=== PATIENT | female | born 1945 | race Caucasian/White ===

== ENCOUNTER 2017-12-23 18:47 | Inpatient (IN) | payer MEDICARE, OTHER ==
[2017-12-23 19:59] VITALS: BP 117/68
[2017-12-23] MEDS ORDERED: Magnesium Hydroxide (MOM) 30 mL UDC PO PRN (20:49)
[2017-12-24 07:32] LABS: CHOLESTEROL 162 mg/dL (<200); HDL -HIGH DENSITY LIPOPROTEIN 52 mg/dL (23-92); TRIGLYCERIDES 119 mg/dL (<150)
--- NOTE | 2017-12-24 08:31 | Psychiatric Evaluation ---
DATE OF SERVICE: 12/24/2017 JUSTIFICATION FOR HOSPITALIZATION: The patient is coming in to the hospital, believing her was poisoning her. The patient was walking in the middle of the street and coherent. CHIEF COMPLAINT: "Please send me home now." HISTORY OF PRESENT ILLNESS: A 72-year-old female, confused, disoriented, believes the year is 1979, knows the month of December, believes it is , has no idea why she is here. Apparently, she was believing her was trying to poison her. She was leaving her residence therefore walking in the middle of the street, walking in circles and coherent, noted to be confused, irritable, agitated and following me around the unit preoccupied, stating that she wants her calm and she wants to go home, very demanding, trying to leave the unit. The patient making statements that her was trying to kill her for some unclear reason. Difficult to interview because she is so fixated on leaving telling me to sign her out immediately. PAST PSYCHIATRIC HISTORY: Unclear, but there is some documentation about possibly bipolar versus depression. FAMILY HISTORY: Noncontributory. SOCIAL HISTORY: The patient states she was born in [place], . She states she has 2 children, 15 grandchildren and unclear drugs or alcohol or tobacco. MENTAL STATUS EXAMINATION: Stated age. Fair eye contact. Speech rambling loud. Mood "ready to go home." Affect flat. Thought processes were disoriented. No SI, no HI. No auditory or visual hallucinations, but the patient does appear to be psychotic and paranoid. Insight poor. Judgment diminished. PROVISIONAL DIAGNOSES: Psychosis, unspecified. Under medical, please see full H and P, also rule out dementia. ESTIMATED LENGTH OF STAY: 7-10 days. ASSESSMENT: The patient's psychotic left her house, rambling, walking in circles, paranoid, believing is trying to kill her. PLAN: We will initiate low-dose antipsychotic, increase collateral. TREATMENT PLAN: Includes group as well as milieu therapy. CONDITIONS FOR DISCHARGE: Improved mood, improved affect, better control of any psychotic symptoms. JOB# [id number]
--- NOTE | 2017-12-25 00:36 | History & Physical ---
ADMIT DATE: 12/23/2017 REASON FOR ADMISSION: Psychiatric disorder. HISTORY OF PRESENT ILLNESS: This is a 72-year-old female with underlying history of hypertension, hyperlipidemia, diabetes, some mental disorders, was admitted to Geropsych Unit for underlying psychiatric illness by Dr. Jamil. Dr. Jamil requested medical H and P on this patient. PAST MEDICAL HISTORY: Diabetes, hypertension, hyperlipidemia and mental disorders. PAST SURGICAL HISTORY: Noncontributory. SOCIAL HISTORY: Lives in a nursing facility. No alcohol, tobacco or street drug use. CURRENT MEDICATIONS: As per medication reconciliation. ALLERGIES: AMLODIPINE, BENAZEPRIL,and CODEINE. REVIEW OF SYSTEMS: No fever, no chills, no diarrhea, no vomiting, no abdominal pain, no chest pain, no short of breath, no headache. No other medical complaints. PHYSICAL EXAMINATION: VITAL SIGNS: Temperature 97.2, pulse 63, respirations 19 and blood pressure 136/81. HEENT: Unremarkable. HEART: S1 and S2 normal. LUNGS: Clear to auscultation. ABDOMEN: Soft. EXTREMITIES: No edema. ASSESSMENT: 1. Hypertension, stable. 2. Diabetes. 3. Hyperlipidemia. 4. Mental disorder. PLAN: The patient admitted to Geropsych unit. patient's underlying medical problems seems stable. Home medication reconciled, continue. Lab orders given. The patient is medically stable. Thank you Dr. Jamil for allowing me to participate in the care of this patient. [facility]# [id number] [facility]IT[facility]
[2017-12-25] MEDS: Fluticasone Propionate Nasal 1 SPR SPR NS SCH (08:53)
[2017-12-25] MEDS: Aspirin 81mg Chewable Tab PO SCH (08:54)
[2017-12-25] MEDS ORDERED: Non-Formulary Item 1 EA (Esomeprazole Magnesium [Nexium] 40 MG) PO SCH (09:00)
[2017-12-25] MEDS ORDERED: Haloperidol Lactate 5 mg/mL 1mL Vial ONE (10:13)
[2017-12-25] MEDS ORDERED: Haloperidol Lactate 5 mg/mL 1mL Vial IM ONE (10:20)
[2017-12-25 10:46] LABS: % BASOPHILS 1.3 % (0.0-2.0); % EOSINOPHILS 1.2 % (0.0-5.0); % LYMPHOCYTES 21.6 % (20.0-50.0); % MONOCYTES 5.6 % (2.0-10.0); % NEUTROPHILS 70.3 % (40.0-80.0); BASOPHILE ABSOLUTE 0.1 Th/cumm (0-0.2); EOSINOPHILE ABSOLUTE 0.1 Th/cmm (0.1-0.4); HEMATOCRIT 42.8 % (41.0-60); LYMPHOCYTE ABSOLUTE 1.9 Th/cmm (1.5-3.0); MEAN CELL VOLUME 89.2 fl (81-100); MEAN CORPUSCULAR HEMOGLOBIN 29.1 pg (27.0-31.0); MEAN CORPUSCULAR HGB CONC 32.6 pg (28.0-36.0); MEAN PLATELET VOLUME 6.8 fl; MONOCYTE ABSOLUTE 0.5 Th/cmm (0.3-1.0); NEUTROPHILE ABSOLUTE 6.1 Th/cmm (1.8-8.0); PLATELET COUNT 424 Th/cmm (150-400); RED CELL DISTRIBUTION WIDTH 12.7 % (11.5-20.0); WHITE BLOOD COUNT 8.7 Th/cmm (4.8-10.8)
[2017-12-25 10:47] LABS: ANION GAP 13.9 (7.0-16.0); BUN - UREA NITROGEN 14 mg/dL (7-25); CALCIUM SERUM 9.6 mg/dL (8.6-10.3); CARBON DIOXIDE 21.8 mEq/L (21.0-31.0); CHLORIDE 102 mEq/L (98-107); CREATININE - SERUM 0.6 mg/dL (0.6-1.2); GFR AFRICAN-AMERICAN > 60.0 ml/min (>90); GFR NON AFRICAN-AMERICAN > 60.0 ml/min; GLUCOSE 170 mg/dL (70-105); POTASSIUM SERUM 3.7 mEq/L (3.5-5.1); SODIUM SERUM 134 mEq/L (136-145)
[2017-12-26] MEDS: Fluticasone Propionate Nasal 1 SPR SPR NS SCH (09:45)
[2017-12-26] MEDS: Aspirin 81mg Chewable Tab PO SCH ×2 (09:45→10:00)
--- NOTE | 2017-12-26 18:29 | Progress Notes ---
DATE: 12/25/[address] Aggarwal covering for Dr. Jamil. This is a 72-year-old female who is presenting here, confused and disoriented, believing that it was 1977 and also month of December, but believed that it was and not understanding why she was here. Today on oabx-sa-dzdl evaluation, the patient was responding internally, aggressive, yelling, screaming and very difficult to redirect in conversation, had required emergent medications. MENTAL STATUS EXAMINATION: The patient is on lorazepam as needed, risperidone 0.5 mg p.o. b.i.d. ASSESSMENT AND PLAN: The patient, who presents irritable, agitated and aggressive requiring emergent medications. We will continue with primary psychiatrist's treatment plan. We will obtain more collateral and baseline information. [facility]# [id number]
--- NOTE | 2017-12-27 07:46 | Progress Notes ---
DATE: SUBJECTIVE: The patient was seen and evaluated. The patient's chart reviewed. Overnight, the patient required emergent medication because of aggressive behavior. Today on rafe-sx-taxg evaluation, the patient admits that she has been multiple hospitalizations and because of aggressive behavior, when attempting to discuss it in more detail what she means by aggressive behavior, she becomes more agitated, starts banging on the Светлана chair. MENTAL STATUS EXAMINATION: Psychotic, delusional, aggressive as evident by banging her hand on the Светлана chair. ASSESSMENT AND PLAN: The patient is a 72-year-old female, severely aggressive and agitated. We will continue with the current medication regimen. She will continue to be safe to target the patient's irritable and agitative state. [facility]# [id number]
[2017-12-27] MEDS: Aspirin 81mg Chewable Tab PO SCH (09:27)
[2017-12-27] MEDS: Fluticasone Propionate Nasal 1 SPR SPR NS SCH (09:29)
[2017-12-27] MEDS ORDERED: Haloperidol Lactate 5 mg/mL 1mL Vial IM ONE (10:41)
[2017-12-27] MEDS ORDERED: Benztropine 1 mg/mL 2 mL Vial IM ONE (10:41)
--- NOTE | 2017-12-27 21:03 | Progress Notes ---
DATE: 12/27/2017 SUBJECTIVE: The patient coming to the hospital, believing her was poisoning her. The patient was walking in the middle of the street, not coherent. On kivj-xv-roop, the patient is very intrusive, following me around, hitting the table, restless, requiring constant redirection, prompting, very demanding, constantly asking to go home. When I tell her she cannot go home, she continues asking, very ruminative. The patient requiring emergency orders of medications, irritable, calling the nursing staff all the time, appearing confused, does not know why she is here. At one point, believing that staff is trying to kill her as well. ASSESSMENT: The patient is intrusive, agitated, making nonsensical statements, believing was poisoning her. PLAN: The patient will be receiving Haldol cocktail x1 now. Apparently allergic to BENADRYL. Given her ongoing symptoms, she is not safe for discharge. JOB# [id number]
[2017-12-28] MEDS: Fluticasone Propionate Nasal 1 SPR SPR NS SCH (10:14)
[2017-12-28] MEDS: Aspirin 81mg Chewable Tab PO SCH (10:16)
--- NOTE | 2017-12-29 02:50 | Progress Notes ---
DATE: 12/28/2017 SUBJECTIVE: The patient disoriented, preoccupied, intrusive, apparently believed her was trying to poison her. Mostly fixated on leaving. She becomes restless, combative, aggressive towards staff, at times was trying to hit others or approach her. The patient has required emergency medications as well. She has been here very confused, has no recollection as to why she is here, taking Risperdal. Recent dose increase. ASSESSMENT: The patient remains symptomatic, agitated, trying to hit other people, very confused, delusional, thought her was trying to poison her. PLAN: We will continue to monitor, titrate and adjust medications. Given the patient's ongoing aggressive symptoms, she is not safe for discharge. JOB# [id number]
[2017-12-29] MEDS: Fluticasone Propionate Nasal 1 SPR SPR NS SCH (09:45)
[2017-12-29] MEDS: Aspirin 81mg Chewable Tab PO SCH (09:46)
--- NOTE | 2017-12-29 23:13 | Progress Notes ---
DATE: 12/29/2017 SUBJECTIVE: The patient is very intrusive, following me around, very repetitious, asking the same questions over and over and over again ad nauseam, very forgetful, needing a lot of prompting, constant redirection, wanting to leave the hospital, stating that she wants to go to [place] to be near her . Noncompliant at times, restless, pacing. She is taking medications. No overt side effects noted. EPS has been contacted because it seems that the patient's is not able to care for the patient given how confused she is, how aggressive she can become, sometimes yelling, irritable. Medications were noted. ASSESSMENT: The patient is confused, highly intrusive, a lot of behavioral disturbances, wandering back and forth in the unit asking the same questions over ad nauseam. PLAN: We will continue to monitor. We are also at this time trying to confirm the safe disposition plan at the same time that we are attempting to stabilize her. [facility]# [id number]
[2017-12-30] MEDS: Aspirin 81mg Chewable Tab PO SCH (09:05)
[2017-12-30] MEDS: Fluticasone Propionate Nasal 1 SPR SPR NS SCH (09:23)
--- NOTE | 2017-12-30 14:51 | Progress Notes ---
DATE: 12/30/2017 SUBJECTIVE: The patient is very confused, disoriented, aggressive, agitated, ripping off the nurse's clothes and banging on tables and aggressive, needs near constant redirection, very restless, unable to be cared for. Certainly at a lower level of care, is screaming, yelling. ASSESSMENT: The patient requiring a Светлана chair, very aggressive, agitated, combative at times. PLAN: We will continue to monitor. The patient will likely need titration of medications. We will increase Ativan dosing p.r.n. and will stop Risperdal and start low dose of Seroquel b.i.d. MEDICATIONS: Reviewed. JOB# [id number]
[2017-12-31] MEDS: Fluticasone Propionate Nasal 1 SPR SPR NS SCH (09:22)
[2017-12-31] MEDS: Aspirin 81mg Chewable Tab PO SCH (09:25)
--- NOTE | 2017-12-31 21:10 | Progress Notes ---
DATE: 12/31/2017 The patient ruminative, repetition, still asking to live, to be transferred, asks is everything okay multiple times during the time that I talked to her, poorly oriented, very confused, requiring high level of redirection, prompting, states she wants to go home with her . It is unclear if she is able to really care for her basic needs at home. Adult Protective Services is involved because of the who is elderly himself cannot really take care of the patient. The patient seems somewhat calmer versus yesterday. Cervical dosing seems to be calming the patient down. We will continue to monitor. The patient remains impulsive, unpredictable. We will also consider Namenda. JOB# [id number]
[2018-01-01] MEDS: Fluticasone Propionate Nasal 1 SPR SPR NS SCH (08:53)
[2018-01-01] MEDS: Aspirin 81mg Chewable Tab PO SCH (08:53)
--- NOTE | 2018-01-01 11:19 | Progress Notes ---
DATE: 01/01/2018 SUBJECTIVE: The patient slept for about 5 hours, agitated, very fixated on being transferred. There is no indication that a transfer is possible, but the patient believes otherwise she repeats this probably 100 times a day if not more. I explained to her what is going on and then a few minutes later, she repeats the same thing that she wants to be transferred. The patient agitated, throwing cups of water, punching a table, threatening to throw a binder at me to the point that the staff have to get involved and redirect her, wandering the units. The patient disoriented, needs constant reorientation. She knows where she is. She knows she is in the hospital. She has no idea why she is in the hospital. She does not know the year, the month. The patient focused on going home, but as of right now, she cannot go home and she does not remember why she is here, asking to speak to a viticulture teacher, but then forgetting that she never actually spoke to a viticulture teacher and talking about the court and the supreme court judge for some reason, trying to scratch staff. ASSESSMENT: The patient is combative, demanding, agitated, threatening to harm staff. Currently on Namenda. She may benefit from dosing of Aricept. PLAN: We will continue to monitor. Given her ongoing symptoms, she is not safe for discharge at this time. JOB# [id number]
--- NOTE | 2018-01-02 08:54 | Progress Notes ---
DATE: 01/02/2018 SUBJECTIVE: The patient is disorganized, agitated convinced the staff is putting poison in her water, noted to be paranoid, unpredictable, requiring constant redirection, prompting, at times going in a Светлана chair. The patient mumbling, claiming that people are trying to kidnap her, calling staff members, pros and cons. The patient did have some EPS from Seroquel. It seems it was stopped. ASSESSMENT: The patient is paranoid, disoriented, confused, psychotic appearing. We will stop Seroquel. The patient with very poor sleep, agitation and psychosis. We will initiate Zyprexa dosing. JOB# [id number]
[2018-01-02] MEDS: Aspirin 81mg Chewable Tab PO SCH (09:28)
[2018-01-02] MEDS: Fluticasone Propionate Nasal 1 SPR SPR NS SCH (10:18)
[2018-01-03] MEDS: Fluticasone Propionate Nasal 1 SPR SPR NS SCH (09:31)
[2018-01-03] MEDS: Aspirin 81mg Chewable Tab PO SCH (09:31)
--- NOTE | 2018-01-04 01:32 | Progress Notes ---
DATE: 01/03/2018 SUBJECTIVE: The patient in bed, restless, hyperverbal, requiring emergency dosing of Ativan. Noted to be symptomatic, very psychotic, believing that the Germans are trying to poison her, people are trying to kill her, the staff is trying to kill her and poison her, nonsensical, still asking to be transferred. I told her transfer is not possible. She is very ruminative, disorganized, easily agitated, hostile. ASSESSMENT: Ongoing safety concerns. The patient with ongoing psychotic symptoms. I will be increasing her dosing of Zyprexa today. JOB# [id number]
[2018-01-04] MEDS: Fluticasone Propionate Nasal 1 SPR SPR NS SCH (09:23)
[2018-01-04] MEDS: Aspirin 81mg Chewable Tab PO SCH (09:24)
--- NOTE | 2018-01-04 21:31 | Progress Notes ---
DATE: 01/04/2018 SUBJECTIVE: The patient remains intrusive, agitated, highly repetitive and ruminative, demanding to leave, but has nowhere to go. Does not seem to understand why she is here, still believes that the Germans are trying to hurt or harm her and poison her, believing that staff are trying to harm her. The patient is highly restless. at bedside, notes that he cannot take care of the patient and that she throws things at home and gets violent and aggressive. The patient is very forgetful, constantly asking the same questions over and over again. ASSESSMENT: The patient is confused, combative, highly restless. PLAN: We will continue to monitor. The patient remains disoriented, paranoid, cannot be cared for at a lesser level of care. I will titrate her Zyprexa dosing. No side effects noted on exam. Discussed with the patient. Discussed with . Discussed with staff. JOB# [id number]
[2018-01-05] MEDS: Aspirin 81mg Chewable Tab PO SCH (08:33)
[2018-01-05] MEDS: Fluticasone Propionate Nasal 1 SPR SPR NS SCH (08:34)
--- NOTE | 2018-01-05 21:10 | Progress Notes ---
DATE: 01/05/2018 SUBJECTIVE: The patient aggressive, confused, labile, intrusive, getting very close to me to the point that I have to ask her to back away and staff has to get involved, yelling at times, grabbing items, sometimes trying to strike out at staff. The patient is paranoid, believing that there is poison in the water, that staff is trying to kill her. "The Germans are trying to kill her." The patient is very unruly, following me around the unit, believing that the water is contaminated. The patient sometimes refusing medications. The patient wants to leave, wants to be transferred, but does not really know where transfer to right now given her ongoing behavior. ASSESSMENT: The patient is confused, forgetful, paranoid, at times medications noncompliant, other times she does take medications. PLAN: We will continue to monitor, ongoing concerns about compliance. I may need to follow a Juan petition. JOB# [id number]
[2018-01-06] MEDS: Fluticasone Propionate Nasal 1 SPR SPR NS SCH (09:38)
[2018-01-06] MEDS: Aspirin 81mg Chewable Tab PO SCH (09:38)
--- NOTE | 2018-01-06 13:25 | Progress Notes ---
DATE: 01/06/2018 Case was discussed with staff of the patient, reviewed records. This is covering for Dr. Jamil. A 72-year-old female who was admitted to ____, she was disoriented, confused, agitated. The patient has no idea why she was admitted, she was living residence, walking in the middle of the street in circles, confused, irritable, agitated with a possible history of bipolar disorder. The patient continues to be unpredictable and impulsive. Actually, she ____, she appeared to be very aggressive, irritable, demanding. She has been compliant with the medication with no side effects, no sedation, no nausea. She is on Aricept 5 mg at bedtime, Namenda 5 mg daily and Zyprexa 10 mg at bedtime to 12.5 mg daily with no side effects, no sedation, no nausea, no extrapyramidal symptoms. I will be increasing Namenda to 5 mg twice a day and I will continue the patient in group therapy, milieu therapy, and adjust medications as needed. JOB# [id number]
[2018-01-07] MEDS: Fluticasone Propionate Nasal 1 SPR SPR NS SCH (09:51)
[2018-01-07] MEDS: Aspirin 81mg Chewable Tab PO SCH (09:52)
--- NOTE | 2018-01-07 21:38 | Progress Notes ---
DATE: 01/07/2018 SUBJECTIVE: Case was discussed with staff of the patient. The patient continues to be unpredictable, impulsive, easily agitated, continues to have poor insight. Continues to be confused, unable to make safe plan for self-care. She is compliant with the medication with no side effects, no sedation, no nausea, no extrapyramidal symptoms and we will continue to work with the patient in group therapy, milieu therapy, adjust medication as needed. JOB# [id number]
[2018-01-08] MEDS: Aspirin 81mg Chewable Tab PO SCH (08:49)
--- NOTE | 2018-01-08 08:49 | Progress Notes ---
DATE: Dr. Velasquez covering for Dr. Jamil. SUBJECTIVE: Chart reviewed and the patient interviewed. Also discussed the patient's condition with the staff and reviewed records and labs. The patient is still agitated and is still restless. The patient also is fighting with the staff. She also tries to hit others. The patient also is selective with taking her medications and sometimes to take medications, sometimes she does not. She also paranoid and thinks that the staff are trying to poison her. Otherwise, no side effects of medications. ASSESSMENT: The patient is still agitated and is still psychotic. TREATMENT PLAN: We will increase Zyprexa to 5 mg in the morning and 10 mg at bedtime. Also, continue adjusting psychotropic medications and continue to work on behavioral modifications. JOB# [id number]
[2018-01-08] MEDS: Fluticasone Propionate Nasal 1 SPR SPR NS SCH (08:56)
--- NOTE | 2018-01-08 21:48 | General Progress Note ---
Subjective - Review of Systems Service Date: 01/08/18 Subjective: Patient doing ok Per nursing staff patient has been refusing her meds Objective - Results Result Diagrams: 12/25/17 10:27 12/25/17 10:27 Recent Labs: Laboratory Last Values WBC 8.7 Th/cmm (4.8-10.8) 12/25/17 10:27 RBC 4.80 Mil/cmm (3.80-5.20) 12/25/17 10:27 Hgb 14.0 gm/dL (12-16) 12/25/17 10:27 Hct 42.8 % (41.0-60) 12/25/17 10:27 MCV 89.2 fl (81-100) 12/25/17 10:27 MCH 29.1 pg (27.0-31.0) 12/25/17 10: MCHC Differential 32.6 pg (28.0-36.0) 12/25/17 10: RDW 12.7 % (11.5-20.0) 12/25/17 10:27 Plt Count 424 Th/cmm (150-400) H 12/25/17 10:27 MPV 6.8 fl 12/25/17 10:27 Neutrophils % 70.3 % (40.0-80.0) 12/25/17 10:27 Lymphocytes % 21.6 % (20.0-50.0) 12/25/17 10: Monocytes % 5.6 % (2.0-10.0) 12/25/17 10: Eosinophils % 1.2 % (0.0-5.0) 12/25/17 10: Basophils % 1.3 % (0.0-2.0) 12/25/17 10:27 Sodium 134 mEq/L (136-145) L 12/25/17 10:27 Potassium 3.7 mEq/L (3.5-5.1) 12/25/17 10:27 Chloride 102 mEq/L (98-107) 12/25/17 10:27 Carbon Dioxide 21.8 mEq/L (21.0-31.0) 12/25/17 10:27 Anion Gap 13.9 (7.0-16.0) 12/25/17 10:27 BUN 14 mg/dL (7-25) 12/25/17 10:27 Creatinine 0.6 mg/dL (0.6-1.2) 12/25/17 10:27 Est GFR ( Amer) > 60.0 ml/min (>90) 12/25/17 10:27 Est GFR (Non-Af Amer) > 60.0 ml/min 12/25/17 10:27 BUN/Creatinine Ratio 23.3 12/25/17 10:27 Glucose 170 mg/dL (70-105) H 12/25/17 10:27 POC Glucose 122 MG/DL (70 - 105) H 12/24/17 22:15 Calcium 9.6 mg/dL (8.6-10.3) 12/25/17 10:27 Triglycerides 119 mg/dL (<150) 12/24/17 07:00 Cholesterol 162 mg/dL (<200) 12/24/17 07:00 LDL Cholesterol Direct 95 mg/dL (75-193) 12/24/17 07:00 HDL Cholesterol 52 mg/dL (23-92) 12/24/17 07:00 - Physical Exam Vitals and I&O: Vital Signs Temp 97.8 F 01/08/18 20:11 Pulse 100 01/08/18 21:01 Resp 18 01/08/18 20:11 BP 101/65 01/08/18 21:01 Pulse Ox 97 01/08/18 20:11 Intake & Output 01/08/18 01/08/18 01/09/18 06:59 18:59 06:59 Intake Total 240 1000 240 Balance 240 1000 240 Intake: Oral 240 1000 240 Other: # Voids 2 3 2 # Bowel Movements 1 Active Medications: Current Medications Acetaminophen (Tylenol) 650 mg PO Q4HR PRN PRN Reason: Mild Pain / Temp above 100 Stop: 02/21/18 20:48 Last Admin: 12/24/17 22:54 Dose: 650 mg Aspirin (Aspirin Chewable) 81 mg PO DAILY PADMINI Stop: 02/23/18 08:59 Last Admin: 01/08/18 08:49 Dose: Not Given Donepezil HCl (Aricept) 5 mg PO HS PADMINI Stop: 03/02/18 20:59 Last Admin: 01/08/18 21:01 Dose: 5 mg Fluticasone Propionate (Flonase) 1 spr NS DAILY PADMINI Stop: 02/23/18 08:59 Last Admin: 01/08/18 08:56 Dose: Not Given Hydralazine HCl (Apresoline) 10 mg PO TID PADMINI Stop: 02/22/18 21:59 Last Admin: 01/08/18 21:01 Dose: Not Given Lorazepam (Ativan) 1 mg PO Q6HR PRN; Protocol PRN Reason: Anxiety Stop: 01/22/18 20:48 Last Admin: 01/06/18 14:02 Dose: 1 mg Magnesium Hydroxide (Milk Of Magnesia) 30 ml PO HS PRN PRN Reason: Constipation Memantine (Namenda) 5 mg PO BID PADMINI Stop: 03/07/18 16:59 Last Admin: 01/08/18 18:25 Dose: Not Given Metformin HCl (Glucophage) 500 mg PO AC PADMINI Stop: 02/23/18 07:29 Last Admin: 01/08/18 18:25 Dose: Not Given Olanzapine (Zyprexa) 10 mg PO HS PADMINI; Protocol Stop: 03/05/18 20:59 Last Admin: 01/08/18 21:02 Dose: 10 mg Olanzapine (Zyprexa) 5 mg PO DAILY PADMINI; Protocol Stop: 03/09/18 08:59 Last Admin: 01/08/18 08:49 Dose: 5 mg Valsartan (Diovan) 160 mg PO BID PADMINI Stop: 02/23/18 08:59 Last Admin: 01/08/18 18:25 Dose: Not Given General: Other (confused) Cardiovascular: Regular rate Lungs: Clear to auscultation Assessment/Plan - Assessment Assessment: DM II HTN NON COMPLIANCE MENTAL HEALTH DISORDER - Plan Plan: Medication compliance advised Continue current medical management Psych eval and management per psychiatrist Nutritional Asmnt/Malnutr-PDOC - Dietary Evaluation Malnutrition Findings (Please click <Entered> for more info): Nutritional Asmnt/Malnutrition Start: 12/27/17 15: 49 Text: Status: Complete Freq: Protocol: Document 12/27/17 15:49 [id number] (Rec: 12/27/17 16:08 [id number]) Nutritional Asmnt/Malnutrition Patient General Information Nutritional Screening Moderate Risk Diagnosis psychosis Pertinent Medical Hx/Surgical Hx DM, HTN, hyperlipidemia, mental disorders Subjective Information Per EMR, PO intake 50-100%, avg 75%. Current Diet Order/ Nutrition Support [facility] soft chopped, DM Pertinent Medications glucophage Pertinent Labs 12/25 Na 134, glucose Ca 9.6 Nutritional Hx/Data Height 1.65 m Height (Calculated Centimeters) 165.1 Current Weight (lbs) 80.286 kg Weight (Calculated Kilograms) 80.3 Weight (Calculated Grams) 96894.8 [place] Body Weight 125 Body Mass Index (BMI) 29.4 GI Symptoms Last BM 12/25 x 2 Skin Integrity/Comment: intact Current %PO Good (75-100%) Estimated Nutritional Goals BEE in Kcals: Using Current wt Calories/Kcals/Kg 23-27 Kcals Calculated 0757-7309 Protein: Using Current wt Protein g/k.8 Protein Calculated 64 Fluid: ml 1840-2160ml (1ml/kcal) Nutritional Problem No current Nutrition Prob Problem N/A Malnutrition Alert Is there a minimum of two criteria No selected? Query Text:Check all the applicable criteria. A minimum of two criteria are recommended for diagnosis of either severe or non-severe malnutrition. Malnutrition Related to Morbid Obesity Malnutrition related to morbid obesity No Intervention/Recommendation Comments 1. Continue with [facility] soft chopped diabetic diet as ordered. 2. Monitor PO intake, wt, labs and skin integrity 3. F/U as low risk in 7 days, 01/03 Expected Outcomes/Goals Expected Outcomes/Goals 1. PO intake to meet at least 75% of nutritional needs. 2. Wt stability, skin to remain intact, labs to approach WNL.
[2018-01-09] MEDS: Aspirin 81mg Chewable Tab PO SCH (09:14)
[2018-01-09] MEDS: Fluticasone Propionate Nasal 1 SPR SPR NS SCH (13:35)
--- NOTE | 2018-01-10 01:22 | Progress Notes ---
DATE: 01/09/2018 Chart reviewed and the patient interviewed. Also, discussed the patient's condition with the staff and reviewed records and labs. The patient is very agitated and she is restless. The patient also was fighting and tries to hit others. The patient also told me that the staff are trying to poison her and that she is refusing to take medications, thinking that the medicine is a poison. At the same time when I was trying to interview the patient, the patient was trying to push me to enter is into another unit and she was very agitated and aggressive and it was difficult for me to calm her down. The patient also is still in irritable and angry mood and also her thoughts are disorganized and was not able to give me any safe plan for self-care. ASSESSMENT: The patient is restless, still agitated and is still paranoid and considered to be gravely disabled. TREATMENT PLAN: Continue monitoring her behavior and her condition closely. Also continue adjusting psychotropic medications. Also, we will place the patient on 30 days certificate based on grave disability. JOB# [id number]
[2018-01-10] MEDS: Fluticasone Propionate Nasal 1 SPR SPR NS SCH (11:51)
[2018-01-10] MEDS: Aspirin 81mg Chewable Tab PO SCH (11:51)
[2018-01-11] MEDS ORDERED: Haloperidol Lactate 5 mg/mL 1mL Vial IM ONE (07:52)
[2018-01-11] MEDS ORDERED: Haloperidol Lactate 5 mg/mL 1mL Vial ONE (07:54)
[2018-01-11] MEDS: Aspirin 81mg Chewable Tab PO SCH (15:33)
[2018-01-11] MEDS: Fluticasone Propionate Nasal 1 SPR SPR NS SCH (15:33)
--- NOTE | 2018-01-11 17:26 | Progress Notes ---
DATE: 01/10/2018 SUBJECTIVE: The patient was seen, very aggressive, trying to grab me to the point that I have to walk away and exit the units. The patient still believes that staff was trying to poison her, alluding to having ____, osteoporosis. The patient is stating that she wants to be transferred. The patient remains aggressive, combative, trying to hit other people, very unruly, refusing to take her medications. Reason is unclear, other than her telling me that she does not feel that she needs. The patient is sleeping well, eating well, very impulsive, restless, unpredictable. ASSESSMENT: The patient is unruly, combative, violent, aggressive, even aggressive with this clinician. PLAN: We will initiate Juan petition. The patient is currently on a 30-day hold. JOB# [id number]
--- NOTE | 2018-01-11 19:48 | Progress Notes ---
DATE: 01/11/2018 The patient is combative, trying to throw things, agitated, convinced nursing staff trying to hurt her, paranoid, requiring emergency medications this morning, refusing medications stating in fact she is not refusing medications, worried about the side effects of medications, but she is not taking them to have side effects. The patient agitated, combative, violent, aggressive, trying to grab staff. PLAN: We are awaiting the court for the Riese hearing. The patient remains violent, aggressive, paranoid. JOB# [id number]
[2018-01-12] MEDS: Fluticasone Propionate Nasal 1 SPR SPR NS SCH (10:54)
[2018-01-12] MEDS: Aspirin 81mg Chewable Tab PO SCH (10:54)
[2018-01-12] MEDS ORDERED: Benztropine 1 mg/mL 2 mL Vial IM PRN (16:45)
--- NOTE | 2018-01-12 19:10 | Progress Notes ---
DATE: 01/12/2018 The patient remains confused, disoriented, Riese petition was upheld. The patient touching the heads of other patients, getting up from the seat and sitting down, banging on the table, refusing ordered medications. Riese was upheld. We will start Haldol IM backup. The patient is unruly, aggressive, violent, grabbing people, paranoid, believing that her food is being poisoned, hyperverbal, loud, demanding at times. ASSESSMENT: The patient unruly, hyperverbal, aggressive. PLAN: We will continue to monitor. I will be stopping her Zyprexa and will be initiating Haldol. She is taking Haldol IM and it seems to be effective. We will plan to give Haldol Decanoate over the next few days, based on tolerability and efficacy given the patient's poor medication compliance. [facility]# [id number]
[2018-01-13] MEDS: Aspirin 81mg Chewable Tab PO SCH (09:04)
[2018-01-13] MEDS: Fluticasone Propionate Nasal 1 SPR SPR NS SCH (09:28)
--- NOTE | 2018-01-14 01:46 | Progress Notes ---
DATE: Dr. Velasquez covering for Dr. Jamil. SUBJECTIVE: Chart reviewed and the patient interviewed. Also discussed the patient's condition with the staff and reviewed records and labs. The patient is still confused and still seems to be disoriented. The patient also is still in irritable mood and she is reluctant to take medications, but at the same time, the patient is ____ and she has been taking her medications. The patient also is still in irritable and aggressive. Otherwise, the patient continued to comply with taking Haldol IM since other medications stopped and plenty of Haldol Decanoate. ASSESSMENT: The patient is still aggressive, but not as psychotic as before. TREATMENT PLAN: Continue to monitor her behavior and her condition closely. Also, continue adjusting psychotropic medications and work on behavior modification as well as her compliance with taking medications. JOB# [id number]
--- NOTE | 2018-01-14 07:10 | Progress Notes ---
DATE: SUBJECTIVE: Chart reviewed and the patient interviewed. Also discussed the patient's condition with the staff and reviewed records and labs. The patient continued to be combative and continued to be aggressive with the staff, especially during helping her with her ADLs. The patient also has difficulty sitting still and yelling and screaming and wandering into other patient's rooms. The patient also has difficulty sleeping at night. She also continued to be delusional and paranoid and thinks that staff are trying to poison her. She also needs lots of redirections. Otherwise, the patient is compliant with taking her medications with no side effects of medications. ASSESSMENT: The patient is still agitated and in irritable mood. TREATMENT PLAN: Continue to monitor her behavior and her condition closely. Also, we will increase Haldol to 5 mg twice a day and will continue to follow up. [facility]# [id number]
[2018-01-14] MEDS: Aspirin 81mg Chewable Tab PO SCH ×2 (09:56→10:42)
[2018-01-14] MEDS: Fluticasone Propionate Nasal 1 SPR SPR NS SCH (09:57)
[2018-01-14] MEDS: Haloperidol Lactate 5 mg/mL 1mL Vial IM PRN (10:44)
[2018-01-15] MEDS: Aspirin 81mg Chewable Tab PO SCH (09:00)
[2018-01-15] MEDS: Fluticasone Propionate Nasal 1 SPR SPR NS SCH (09:03)
[2018-01-16] MEDS: Haloperidol Lactate 5 mg/mL 1mL Vial IM PRN (09:31)
[2018-01-16] MEDS: Fluticasone Propionate Nasal 1 SPR SPR NS SCH (12:25)
[2018-01-16] MEDS: Aspirin 81mg Chewable Tab PO SCH (12:25)
--- NOTE | 2018-01-16 18:39 | Progress Notes ---
DATE: 01/16/2018 SUBJECTIVE: Chart reviewed and the patient interviewed. Also, discussed the patient's condition with the staff and reviewed records and labs. The patient is still forgetful and confused. The patient also is still suspicious and demanding. The patient also needs lots of directions and has difficulty redirecting her. The patient also is still in angry and irritable mood. Otherwise, the patient denies any side effects of medications. ASSESSMENT: The patient is still psychotic. TREATMENT PLAN: Continue adjusting psychotropic medications and monitor her behavior and continue to follow up. JOB# [id number]
[2018-01-17] MEDS: Aspirin 81mg Chewable Tab PO SCH (09:43)
[2018-01-17] MEDS: Fluticasone Propionate Nasal 1 SPR SPR NS SCH (09:44)
--- NOTE | 2018-01-18 05:37 | Progress Notes ---
DATE: SUBJECTIVE: The patient seen, chart reviewed, discussed with staff. The patient is calmer, likely approaching her baseline, taking her medications, sometimes requiring intramuscular medications of Haldol, but this has been more few and far between. The patient a lot less paranoid, no longer talking about being poisoned. The patient still attention seeking, accusation all times, impulsive, irritable, some rambling, but she is a lot less aggressive. ASSESSMENT: The patient seems to be calmer, more cooperative, psychotic symptoms dissipating. PLAN: We will order Haldol Decanoate. The patient does have confirmation of placement. JOB# [id number]
[2018-01-18] MEDS: Aspirin 81mg Chewable Tab PO SCH (09:40)
[2018-01-18] MEDS: Fluticasone Propionate Nasal 1 SPR SPR NS SCH (09:40)
[2018-01-18] MEDS: Haloperidol Lactate 5 mg/mL 1mL Vial IM PRN (09:40)
--- NOTE | 2018-01-18 18:50 | Progress Notes ---
DATE: 01/18/2018 The patient likely at her baseline, calmer, no longer delusional, less paranoid, no combative behavior, significantly calmer, no need for emergency medications, better medication compliance, good tolerance. No EPS. No overt side effects. Sleeping fairly well. No longer aggressive. ASSESSMENT: The patient likely at her baseline, confused, disoriented, but no longer paranoid, no suicidal gestures. No SI. No HI. PLAN: We will discharge today. [facility]# [id number]
== END 2018-01-18 18:30 | DRG 885 ==
LOC: GERO2 18:47
PROVIDERS: ADMIT Psychiatry & Neurology Psychiatry; ATTEND Psychiatry & Neurology Psychiatry
DX: F29 Unspecified psychosis not due to a substance or known physiological condition (principal); I10 Essential (primary) hypertension; E78.5 Hyperlipidemia, unspecified; E11.9 Type 2 diabetes mellitus without complications; Z88.1 Allergy status to other antibiotic agents; Z88.5 Allergy status to narcotic agent; Z88.8 Allergy status to other drugs, medicaments and biological substances; Z91.19 Patient's noncompliance with other medical treatment and regimen
CPT/HCPCS: 36415-UA; 80048-TC; 80061-TC; 82948-90; 83036-90; 85025-TC; J0515; J1200; J1630; J1631; J2060; J7051; Z7610